=== PATIENT | male | born 1935 | race Hispanic/Latino ===

== ENCOUNTER → 2017-09-21 | Outpatient (CLI) | payer MEDICARE ==
[~2017-09-21] VITALS: Ht 162.6 cm; Wt 56.7 kg
[~2017-09-21] MED LIST: REGADENOSON 0.4 MG/5 ML PF SYG IVP SCH
== END | disposition home or self-care (01) ==
LOC: SHCH 08:27
PROVIDERS: ATTEND Internal Medicine Cardiovascular Disease
DX: I25.119 Atherosclerotic heart disease of native coronary artery with unspecified angina pectoris (principal)
CPT/HCPCS: 78452; 93017; 96374; A9500 ×2; J2785

== ENCOUNTER 2018-06-25 08:19 | Inpatient (IN) | payer MEDICARE | END 2018-07-02 20:00 | LOC: EDH 08:19 → 2AH 06-30 12:36 → EDHIP 10:05 → 2DH 06-30 13:59 → 2BH 13:22 → 2CH 06-26 18:10 | PROC: 5A1945Z Respiratory Ventilation, 24-96 Consecutive Hours (ICD-10-PCS; principal; ~2018-06-25) | DX: A41.9 Sepsis, unspecified organism (principal); J18.9 Pneumonia, unspecified organism; J96.01 Acute respiratory failure with hypoxia; R64 Cachexia; I25.10 Atherosclerotic heart disease of native coronary artery without angina pectoris ==

== ENCOUNTER 2019-03-21 17:27 | Inpatient (IN) | payer MEDICARE ==
[~2019-03-21] VITALS: Ht 172.7 cm; Wt 59.6 kg
[~2019-03-21 17:27] MED LIST changes: +ALBU18HF7 IH; +AMLO10TA7 PO; +ATOR20TA65 PO; +AZIT250T9 PO; +CLOP75TA32 PO; +ISOS30TA6 PO; +PRED20TA3 PO; +RANO10003 PO; -REGADENOSON 0.4 MG/5 ML PF SYG IVP SCH; +TAMS0.4C32 PO; +levothyroxine PO
[2019-03-21] MEDS ORDERED: IPRATROPIUM/ALBUTEROL SULFATE 3 ML SOLUTION IH ONE (17:54)
[2019-03-21 18:00] LABS: BASOPHILS % (AUTO) 0.3 % (0.0-5.0); HEMATOCRIT 41.3 % (42-54); LYMPHOCYTES % (AUTO) 7.7 % (21.0-51.0); MEAN CORPUSCULAR HEMOGLOBIN 33.3 pg (27.0-33.0); MEAN CORPUSCULAR HGB CONC 33.3 g/dL (32.0-36.0); MONOCYTES % (AUTO) 9.3 % (3.0-13.0); NEUTROPHILS % (AUTO) 82.7 % (40.0-77.0); PLATELET COUNT (AUTO) 197 K/uL (130-400); RED BLOOD CELL COUNT(AUTO) 4.13 MIL/uL (4.50-6.20); RED CELL DISTRIBUTION WIDTH 16.6 % (11.0-15.5); WHITE BLOOD COUNT (AUTO) 9.8 K/uL (4.8-10.8)
[2019-03-21 18:14] LABS: INR 1.69 (0.85-1.15); PROTHROMBIN TIME 17.4 SEC (9.6-11.6)
[2019-03-21 18:42] LABS: ALBUMIN 3.2 g/dL (3.5-5.0); BILIRUBIN,DIRECT 1.2 mg/dL (0.0-0.3); CREATININE 2.8 mg/dL (0.5-1.5); TOTAL PROTEIN, SERUM 6.8 g/dL (6.0-8.3)
[2019-03-21] MEDS ORDERED: ZOSYN 3.375GM+NS 50ML 50 ML IV ONE (18:48)
[2019-03-21 18:51] LABS: B-TYPE NATRIURETIC PEPTIDE 1830 pg/mL (0-100)
[2019-03-21 18:52] LABS: POTASSIUM 6.3 mmol/L (3.5-5.1)
[2019-03-21] MEDS ORDERED: INSULIN HUMULIN R 100 UNIT/ML 3ML ONE (19:24)
[2019-03-21] MEDS ORDERED: CALCIUM GLUCONATE 1 GM/10 ML VIAL IV ONE (19:24)
[2019-03-21] MEDS ORDERED: DEXTROSE 50%-WATER 50 ML DISP.SYRIN IV ONE ×2 (19:25→22:11)
[2019-03-21 19:28] LABS: ABG BASE EXCESS -13.4 mmol/L (-2.0-3.0); ABG HCO3 10.5 mmol/L (21.0-28.0); ABG OXYGEN SATURATION 94.3 % (95.0-99.0); ABG PCO2 21 mmHg (35-48)
[2019-03-21] MEDS ORDERED: SODIUM CHLORIDE 0.9% 500ML 500 ML IV ONE ×2 (20:07→21:14)
[2019-03-21 20:12] LABS: APPEARANCE,URINE CLOUDY (CLEAR); BILIRUBIN,URINE LARGE (NEGATIVE); COLOR,URINE BROWN (YELLOW); GLUCOSE, URINE (UA) NEGATIVE (NEGATIVE); KETONES,URINE 15 mg/dL (NEGATIVE); LEUKOCYTE ESTERASE ,URINE TRACE (NEGATIVE); NITRATE,URINE POSITIVE (NEGATIVE); OCCULT BLOOD,URINE MODERATE (NEGATIVE); PH,URINE 6.5 (5.0-8.0); PROTEIN,URINE >=300 mg/dL (NEGATIVE); UROBILINOGEN,URINE >=8.0 mg/dL (0.2-1.0)
[2019-03-21 20:18] LABS: BACTERIA,URINE Moderate /HPF (None Seen); MUCUS,URINE Few LPF (None Seen); SQUAMOUS EPITHELIAL CELL,UR 0-2 /HPF (0-2)
[2019-03-21 20:19] LABS: URIC ACID CRYSTALS,URINE Few /LPF (None Seen)
[2019-03-21] MEDS ORDERED: MIDAZOLAM 100MG-0.9% NS 100ML 100 ML IV PRN (20:30)
[2019-03-21] MEDS ORDERED: NITROGLYCERIN 1GM/1 INCH PACKET TD ONE (23:11)
[2019-03-21] MEDS ORDERED: VANCOMYCIN 1GM+NS 250ML 250 ML IV ONE (23:11)
[2019-03-21] MEDS ORDERED: LACTATED RINGERS 1000ML 1,000 ML IV ONE (23:13)
[2019-03-22] VITALS (22 sets, daily range): BP systolic 107–162; BP diastolic 52–92
--- NOTE | 2019-03-22 | NUR ---
RECEIVED BY LUZ FROM ER. MOVED TO ICU BED 218. PLACED ON GLASSWARE FINISHER PULSE OXIMETER NIBP PULSE OX. DENIES PAIN. SON HERE WHO IS HIS BIN PACKER AND ANSWERS ADMISSION QUESTIONS. CALL LIGHT GIVEN AND EXPLAINED.
[2019-03-22] MEDS ORDERED: ALBUMIN (HUMAN) 5% 250 ML IV ONE (00:28)
[2019-03-22] MEDS ORDERED: VANCOMYCIN PROTOCOL PER PHARMACY IV SCH (00:30)
[2019-03-22] MEDS: LACTATED RINGERS 1000ML 1,000 ML IV SCH ×2 (00:30→13:08)
[2019-03-22] MEDS ORDERED: MIDODRINE HCL 5 MG TABLET ONE (00:31)
[2019-03-22] MEDS: ALBUMIN (HUMAN) 5% 250 ML IV SCH ×4 (00:45→18:00)
[2019-03-22] MEDS ORDERED: OCTREOTIDE ACETATE 100 MCG/ML AMP ONE (00:45)
[2019-03-22] MEDS: SODIUM BICARB 8.4% 50ML SYRINGE IVP SCH ×2 (00:45→05:43)
[2019-03-22] MEDS: CALCIUM GLUCONATE 1 GM/10 ML VIAL IV SCH ×2 (00:45→05:43)
[2019-03-22] MEDS ORDERED: INSULIN HUMULIN R 100 UNIT/ML 3ML IV SCH (00:45)
[2019-03-22] MEDS ORDERED: DEXTROSE 50%-WATER 25 GM/50 ML VIAL IV SCH (00:45)
[2019-03-22] MEDS: MIDODRINE HCL 5 MG TABLET PO SCH ×3 (00:46→16:00)
[2019-03-22] MEDS: OCTREOTIDE ACETATE 100 MCG/ML AMP SQ SCH ×3 (00:55→16:00)
[2019-03-22] MEDS: SODIUM POLYSTYRENE SULFONATE 15 GM/60 ML ML PO NR ×2 (01:29→04:43)
[2019-03-22] MEDS ORDERED: MEGE40TA2 PO (01:59)
[2019-03-22] MEDS ORDERED: CETI10TA57 PO (01:59)
[2019-03-22 04:35] LABS: HEMATOCRIT 35.3 % (42-54); MEAN CORPUSCULAR HEMOGLOBIN 33.5 pg (27.0-33.0); MEAN CORPUSCULAR HGB CONC 33.9 g/dL (32.0-36.0); MEAN CORPUSCULAR VOLUME 98.8 fL (79-99); PLATELET COUNT (AUTO) 150 K/uL (130-400); RED BLOOD CELL COUNT(AUTO) 3.57 MIL/uL (4.50-6.20); RED CELL DISTRIBUTION WIDTH 16.4 % (11.0-15.5); WHITE BLOOD COUNT (AUTO) 12.7 K/uL (4.8-10.8)
[2019-03-22 05:08] LABS: ALBUMIN 3.1 g/dL (3.5-5.0); BILIRUBIN,TOTAL 1.9 mg/dL (0.2-1.0); CREATININE 2.5 mg/dL (0.5-1.5); MAGNESIUM 1.9 mg/dL (1.80-2.40); POTASSIUM 5.9 mmol/L (3.5-5.1); TOTAL PROTEIN, SERUM 6.1 g/dL (6.0-8.3)
[2019-03-22] MEDS ORDERED: SODIUM BICARB 50MEQ 50ML VIAL ONE (05:33)
[2019-03-22] MEDS ORDERED: DEXTROSE 50%-WATER 50 ML DISP.SYRIN IV ONE (05:35)
[2019-03-22] MEDS ORDERED: LACTULOSE 20 GM/30 ML UDCUP ONE (05:59)
[2019-03-22] MEDS: ZOSYN 3.375GM+NS 50ML 50 ML IV SCH ×2 (06:02→18:00)
[2019-03-22] MEDS: NITROGLYCERIN 1GM/1 INCH PACKET TD SCH ×5 (06:03→18:30)
[2019-03-22] MEDS ORDERED: PANTOPRAZOLE 40 MG/VIAL IVP SCH (09:00)
[2019-03-22] MEDS ORDERED: FAMOTIDINE/PF 20 MG/2 ML VIAL IV SCH (09:00)
--- NOTE | 2019-03-22 11:27 | NUR ---
DCP:HOME WITH FAMILY Sw met with pt and grand daughter Nancy Jeffery [phone]. Pt lives with son Fco Jeffery and Samantha [phone]. Pt is independent of ADLS, has provider 3hrs day [facility] to assist with home management and meal prep. Pt has no DME or HH services. PCP is [facility] and [facility] is pharm of choice. Pt has no MPOa or directives, is his own decision maker. Plan is home with family Addendum: 03/22/19 at 1129 by DERRICK BOWER Amended: Links added.
--- NOTE | 2019-03-22 15:35 | NUR ---
HOME WITH [facility] [phone] Sw met with pt's son whom pt has lived with for the past 30years. Per son, he is agreeable to home with [facility] [phone]. Signed signed consent and OOHDNR. Es spoke to Diana at [facility] who met with son and consents were signed. Diana ordered DME and dc pending delivery. Diana to have their bilingual medical receptionist sign OOHDNR Cm informed of need for ambulance transport.
--- NOTE | 2019-03-22 16:00 | NUR ---
HOSPICE PATIENT, CURRENT TREATMENTS STOPPED PENDING DISCHARGE HOME W/ HOSPICE
--- NOTE | 2019-03-22 17:30 | NUR ---
REPORT CALLED TO HUAN CASILLAS, ALL EQUIPMENT AT THE PATIENT'S RESIDENCE
--- NOTE | 2019-03-22 17:35 | NUR ---
[facility] CALLED FOR TRANSPORTATION TO HOME WITH HOSPICE
--- NOTE | 2019-03-22 20:00 | NUR ---
DISCHARGE EMS HERE TO TAKE PT HOME ON HOSPICE DISCHARGE INFORMATION GIVEN TO SON WITH HOSPICE PHONE NUMBER. ALL BELONGINGS AND MEDICATIONS TAKEN BY SON
[2019-03-23 08:12] LABS: HEPATITIS A ANTIBODY IGM Negative (Negative); HEPATITIS B CORE IGM Negative (Negative); HEPATITIS Bs ANTIGEN SCREEN P Negative (Negative)
[2019-03-23] MEDS ORDERED: VANCOMYCIN 1GM+NS 250ML 250 ML IV SCH (21:00)
== END 2019-03-22 20:00 | disposition hospice, home (50) | DRG 871 ==
LOC: EDH 17:27 → EDHIP 21:49 → 2CH 23:39
PROVIDERS: ADMIT Internal Medicine; ATTEND Internal Medicine
DX: A41.9 Sepsis, unspecified organism (principal); K76.7 Hepatorenal syndrome; R65.21 Severe sepsis with septic shock; K72.00 Acute and subacute hepatic failure without coma; K81.0 Acute cholecystitis; B17.9 Acute viral hepatitis, unspecified; D68.9 Coagulation defect, unspecified; J81.1 Chronic pulmonary edema; J90 Pleural effusion, not elsewhere classified; N17.9 Acute kidney failure, unspecified; R18.8 Other ascites; G93.40 Encephalopathy, unspecified; I50.22 Chronic systolic (congestive) heart failure; R64 Cachexia; E87.70 Fluid overload, unspecified; I10 Essential (primary) hypertension; K72.90 Hepatic failure, unspecified without coma; K74.60 Unspecified cirrhosis of liver; Z51.5 Encounter for palliative care; I48.91 Unspecified atrial fibrillation; I25.10 Atherosclerotic heart disease of native coronary artery without angina pectoris; E11.9 Type 2 diabetes mellitus without complications; E78.5 Hyperlipidemia, unspecified; Z68.20 Body mass index [BMI] 20.0-20.9, adult; Z79.02 Long term (current) use of antithrombotics/antiplatelets; Z79.899 Other long term (current) drug therapy
CPT/HCPCS: 36415; 36600; 71045; 76705; 80048; 80053; 80074; 80076; 81001; 82550; 82803; 82948; 83605; 83735; 83880; 84132; 84484; 85025; 85027; 85610; 85730; 87040; 93005; 94640; 99291; C9113; G0378; J0610; J1815; J2250; J2354; J2543; J3370; J3490; J7040; J7070; J7120; P9045